=== PATIENT | female | born 1965 | race Caucasian/White ===

== ENCOUNTER → 2017-04-03 | Outpatient (CLI) | payer OTHER ==
[~2017-04-03] MED LIST: FISH1CAP15 PO; FLUO40CA PO; HYDR-34 PO; MELO7.5T PO; METF500T8 PO
[2017-04-03 07:52] LABS: BASOPHILS % (AUTO) 1 % (0-10); EOSINOPHILS # (AUTO) 0.3 10^3/uL (0.0-0.3); EOSINOPHILS % (AUTO) 4 % (0-10); LYMPHOCYTES # (AUTO) 2.7 X 10^3 (1.0-4.0); LYMPHOCYTES % (AUTO) 33 % (12-44); MEAN CORPUSCULAR HEMOGLOBIN 26 PG (25-34); MEAN CORPUSCULAR HGB CONC 32 G/DL (32-36); MEAN CORPUSCULAR VOLUME 82 FL (80-99); MEAN PLATELET VOLUME 9.7 FL (7.4-10.4); MONOCYTES # (AUTO) 0.6 X 10^3 (0.0-1.0); MONOCYTES % (AUTO) 7 % (0-12); NEUTROPHILS # (AUTO) 4.5 X 10^3 (1.8-7.8); NEUTROPHILS % (AUTO) 56 % (42-75); PLATELET COUNT 290 10^3/uL (130-400); RED BLOOD COUNT 3.74 10^6/uL (4.35-5.85); RED CELL DISTRIBUTION WIDTH 15.1 % (10.0-14.5); WHITE BLOOD COUNT 8.1 10^3/uL (4.3-11.0)
[2017-04-03 08:38] LABS: ALANINE AMINOTRANSFERASE 25 U/L (0-55); ALBUMIN 3.7 GM/DL (3.2-4.5); ANION GAP 8 MMOL/L (5-14); ASPARTATE AMINO TRANSFERASE 18 U/L (5-34); BILIRUBIN,TOTAL 0.3 MG/DL (0.1-1.0); BLOOD UREA NITROGEN 17 MG/DL (7-18); BUN/CREATININE RATIO 22; CALCIUM 9.1 MG/DL (8.5-10.1); CARBON DIOXIDE 26 MMOL/L (21-32); CHLORIDE 104 MMOL/L (98-107); CHOLESTEROL 150 MG/DL (< 200); CREATININE SERUM 0.76 MG/DL (0.60-1.30); DIRECT LDL 102 MG/DL (1-129); GFR ESTIMATED > 60; GLUCOSE 101 MG/DL (70-105); SODIUM 138 MMOL/L (135-145); TOTAL PROTEIN 7.7 GM/DL (6.4-8.2); TRIGLYCERIDES 95 MG/DL (<150); VLDL CHOLESTEROL 19 MG/DL (5-40)
[2017-04-03 08:47] LABS: THYROID STIMULATING HORMONE 0.74 UIU/ML (0.35-4.94)
== END ==
LOC: LAB 07:37
PROVIDERS: ATTEND Family Medicine
DX: E78.5 Hyperlipidemia, unspecified (principal); D64.9 Anemia, unspecified; E11.9 Type 2 diabetes mellitus without complications; E03.9 Hypothyroidism, unspecified
CPT/HCPCS: 36415; 80053; 80061; 82728; 83036; 83540; 84439; 84443; 85025; 85652

== ENCOUNTER 2017-08-24 07:17 | Emergency (ER) | payer OTHER ==
[~2017-08-24] VITALS: Ht 165.1 cm; Wt 113.4 kg
[2017-08-24] MEDS ORDERED: [UNRECOGNIZED DRUG - OTHER] (07:40)
[2017-08-24] MEDS ORDERED: KETOROLAC 60 MG/2 ML VIAL IM STA (07:43)
--- NOTE | 2017-08-24 07:49 | ED Back Pain ---
General Chief Complaint: Back Problems Stated Complaint: BACK PAIN Nursing Triage Note: ARRIVED VIA AMB TO ROOM 08. COMPLAINS OF MID BACK PAIN THAT HAS BECAME WORSE OVER THE LAST SEVERAL DAYS. TOOK X3 MUSCLE RELAXERS WHILE AT WORK WHICH DID NOT HELP. Nursing Sepsis Screen: No Definite Risk Source of Information: Patient Exam Limitations: No Limitations History of Present Illness Time Seen by Provider: 07:30 Initial Comments Here with report of mid and upper back pain that actually at about the level of the bra line and radiates to the right. Also radiates up and down the spine and lateral aspect from there. Has tried irvm-jpn-keuqxgi medicines as well as her typical mode neck and this is not working. She has tried the over-the- counter lidocaine preparations and that has not provided much relief either. 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 It is now worse causing presentation to the ER. Denies bowel or bladder incontinence or numbness between her legs. Denies difficulty with walking other than she has pain. States that the pain sometimes take her breath away. Location: Paraspinous Muscles, T-Spine Timing/Duration: 1-2 Days Severity: Moderate Pain/Injury Location: Back Method of Injury: Unknown Modifying Factors: Worse With Movement Associated Symptoms: muscle spasms, No fever, No weakness, No numbness in legs/ feet, No tingling in legs/feet, No sensory/motor loss, No lower back pain, No loss of bladder control, No loss of bowel control Allergies and Home Medications Allergies Coded Allergies: No Known Drug Allergies (Verified , 04/28/09) Home Medications Fluoxetine Hcl 40 Mg Capsule, 1 EACH PO DAILY, (Reported) Meloxicam 7.5 Mg Tablet, 15 MG PO DAILY, (Reported) [Hyzar] , (Reported) Constitutional: see HPI, No chills, No fever Respiratory: see HPI, No short of breath, No wheezing Cardiovascular: no symptoms reported Gastrointestinal: no symptoms reported Musculoskeletal: see HPI, back pain, muscle pain, muscle stiffness, No muscle weakness, No neck pain Psychiatric/Neurological: No Symptoms Reported Past Kezgxlq-Qtoych-Cdnlcw Hx Patient Social History Alcohol Use: Denies Use Recreational Drug Use: No Smoking Status: Former Smoker Recent Foreign Travel: No Contact w/Someone Who Travel: No Recent Infectious Disease Expo: No Recent Hopitalizations: Yes (GALLBLADDER 2000) Surgeries History of Surgeries: Yes (GALLBLADDER) Respiratory History of Respiratory Disorde: No Cardiovascular History of Cardiac Disorders: No Neurological History of Neurological Disord: No Reproductive System Hx Reproductive Disorders: No Sexually Transmitted Disease: No Genitourinary History of Genitourinary Disor: No Gastrointestinal History of Gastrointestinal Di: No Musculoskeletal History of Musculoskeletal Dis: Yes Musculoskeletal Disorders: Fibromyalgia Endocrine History of Endocrine Disorders: Yes (HAS BEEN ABLE TO GET OFF MEDICATION) HEENT History of HEENT Disorders: No Cancer History of Cancer: No Psychosocial History of Psychiatric Problem: No Integumentary History of Skin or Integumenta: No Blood Transfusions History of Blood Disorders: Yes Reviewed Nursing Assessment Reviewed/Agree w Nursing PMH: Yes Family Medical History Significant Family History: No Pertinent Family Hx Physical Exam Vital Signs Vital Sign - Last 12Hours 08/24/17 07:25 Temp 97.6 Pulse 113 Resp 18 B/P (MAP) 138/71 (93) Pulse Ox 97 Capillary Refill : Less Than 3 Seconds General Appearance: WD/WN, Mild Distress (back pain) Neck: Full Range of Motion, Normal Inspection, Non Tender, Supple Cardiovascular: Regular Rate, Rhythm, No Murmur Respiratory: Lungs Clear, Normal Breath Sounds Back: Muscle Spasm, Other (tender in the area of the mid back at about the bra line especially on the right side between the scapula and spine. Retains range of motion but pain especially on the right and with spasms along the spine laterally.) Extremity: Normal Range of Motion, Non Tender Neurologic/Psychiatric: Alert, Oriented x3 Skin: Normal Color, Warm/Dry Progress/Results/Core Measures Results/Orders My Orders Orders - YUN JOINER MD Ketorolac Injection (Toradol Injection) (08/24/17 07:43) Vital Signs/I&O Vital Sign - Last 12Hours 08/24/17 07:25 Temp 97.6 Pulse 113 Resp 18 B/P (MAP) 138/71 (93) Pulse Ox 97 Blood Pressure Mean: 93 Progress Note : Progress Note Seen and evaluated. We will hold on imaging at this point and try conservative therapy. Toradol 60 mg IM. Discharged home with return precautions. Patient verbalize understanding instructions and agreement with plan. Departure Impression Impression: Primary Impression: Thoracic back pain Qualified Codes: M54.6 - Pain in thoracic spine Disposition: 01 HOME, SELF-CARE Condition: Stable Departure-Patient Inst. Decision time for Depature: 07:49 Referrals: RANDA BATEMAN DO (PCP/Family) Primary Care Physician Patient Instructions: Upper Back Pain (DC), Muscle Strain (DC) Add. Discharge Instructions: All discharge instructions reviewed with patient and/or family. Voiced understanding. Take medications as directed. Follow-up with your doctor this week for recheck and further evaluation and possible referral to physical therapy. You may use [id number] preparations with lidocaine such as the icy hot with lidocaine to the area of concern between the right shoulder blade and spine. You may take acetaminophen 1000 mg every 6 hours as needed for pain if you're not taking the prescribed pain medicine. Return for worse pain, weakness, breathing problems, fever, difficulty with walking or going to the bathroom or other concerns as needed. Scripts Prednisone (Prednisone) 20 Mg Tab 40 MG PO DAILY, #14 TAB 0 Refills Prov: YUN JOINER MD 08/24/17 Hydrocodone/Acetaminophen (Hydrocodon -Acetaminophen 5-325) 1 Each Tablet 1-2 EACH PO Q6H Y for PAIN-MODERATE, #8 TAB 0 Refills Prov: YUN JOINER MD 08/24/17 Cyclobenzaprine HCl (Cyclobenzaprine HCl) 10 Mg Tablet 10 MG PO Q8H Y for SPASMS, #15 TAB 0 Refills Prov: YUN JOINER MD 08/24/17 Work/School Note: Work Release Form Date Seen in the Emergency Department: Aug 24, 2017 Return to Work: Aug 25, 2017 Restrictions: No Restrictions Copy Copies To 1: RANDA BATEMAN TIMOTHY D MD Aug 24, 2017 07:49
[2017-08-24] MEDS ORDERED: PRD20T PO (07:53)
[2017-08-24] MEDS ORDERED: CYCL10TA9 PO (07:53)
[2017-08-24] MEDS ORDERED: HYDR-3812 PO (07:53)
[2017-08-24 07:58] VITALS: BP 138/71
== END 2017-08-24 07:58 | disposition home or self-care (01) ==
LOC: EDUNIT# 07:17 → ER 07:18
DX: M54.6 Pain in thoracic spine (principal)
CPT/HCPCS: 99284

== ENCOUNTER → 2017-08-29 | Outpatient (CLI) | payer OTHER ==
[~2017-08-29] MED LIST changes: +CYCL10TA9 PO; +HYDR-3812 PO; +PRD20T PO; +[UNRECOGNIZED DRUG - OTHER]
--- NOTE | 2017-08-29 08:13 | Diagnostic Imaging Report ---
EXAMINATION: Three views of the thoracic spine. INDICATION: Mid back pain. FINDINGS: There is minimal right convexity curvature of the thoracic spine. The vertebral body heights are preserved. Disc heights are also preserved. Anterior osteophyte formation in the mid and lower thoracic spine levels and lateral osteophytes more prominent on the right side are also noted. The paraspinal soft tissues appear grossly unremarkable. Surgical clips in the upper right side of the abdomen seen. IMPRESSION: Prominent anterior and lateral osteophytes in the mid and lower thoracic spine. Dictated by: Dictated on workstation # [id number]
== END ==
LOC: RAD 07:35
PROVIDERS: ATTEND Nurse Practitioner Family
DX: M25.78 Osteophyte, vertebrae (principal)
CPT/HCPCS: 72072